=== PATIENT | female | born 1970 | race Caucasian/White ===

== ENCOUNTER 2017-09-28 13:03 | Inpatient (IN) | payer MEDICAID, OTHER ==
[~2017-09-28] VITALS: Ht 162.6 cm; Wt 47.2 kg
[2017-09-28] MEDS ORDERED: HALOPERIDOL LACTATE 5 MG/ML VIAL IM ONE (13:45)
[2017-09-28] MEDS ORDERED: LORazepam 2 MG/ML VIAL IM ONE (13:45)
[2017-09-28] MEDS ORDERED: DiphenhydrAMINE HCL 50 MG/ML VIAL IM ONE (13:45)
[2017-09-28 14:07] LABS: ANION GAP 9 mmol/L (8-16); CARBON DIOXIDE 26 mmol/L (22-29); CHLORIDE 108 mmol/L (98-107); CREATININE 0.88 mg/dL (0.60-1.30); GLOMERULAR FILTR. RATE CALC > 60 mL/min (>60); POTASSIUM 3.8 mmol/L (3.5-5.1); SODIUM SERUM 143 mmol/L (136-145); UREA NITROGEN, BLOOD 20 mg/dL (7-18)
[2017-09-28 14:08] LABS: BASOPHILS % (AUTO) 0.9 % (0.0-2.0); EOSINOPHILS % (AUTO) 3.2 % (1.0-6.0); HEMATOCRIT 37.1 % (36-46); HEMOGLOBIN 12.7 g/dL (12.0-16.0); LYMPHOCYTES # (AUTO) 1.9 K/uL (1.0-4.8); LYMPHOCYTES % (AUTO) 30.4 % (22.0-44.0); MEAN CORPUSCULAR HEMOGLOBIN 27.7 pg (26.0-34.0); MEAN CORPUSCULAR HGB CONC 34.2 G/dL (31.0-37.0); MEAN CORPUSCULAR VOLUME 81 fL (80-100); MONOCYTES # (AUTO) 0.5 K/uL (0.1-1.0); MONOCYTES % (AUTO) 8.1 % (2.0-9.0); NEUTROPHILS # (AUTO) 3.6 K/uL (1.8-7.7); NEUTROPHILS % (AUTO) 57.4 % (40.0-70.0); PLATELET COUNT (AUTO) 216 K/uL (150-450); RED BLOOD CELL COUNT(AUTO) 4.58 MIL/uL (4.00-5.20); RED CELL DISTRIBUTION WIDTH 16.8 % (11.5-14.5); WHITE BLOOD COUNT (AUTO) 6.3 K/uL (4.5-11.0)
[2017-09-28 14:13] LABS: ALANINE AMINOTRANSFERASE 26 U/L (12-78); ALBUMIN 3.5 g/dL (3.4-5.0); ASPARTATE AMINOTRANSFERASE 21 U/L (15-37); BILIRUBIN,TOTAL 0.2 mg/dL (0.1-1.0); TOTAL PROTEIN, SERUM 6.9 g/dL (6.4-8.2)
[2017-09-28] MEDS ORDERED: HALOPERIDOL 5 MG TABLET PO PRN (17:00)
[2017-09-28 17:47] LABS: CHOL/HDL RATIO 3.1 (3.9-5.7)
[2017-09-28 18:33] VITALS: BP 126/73
[2017-09-28] MEDS ORDERED: INFLUENZA VIRUS VACCINE QVS 2017-18 (3YR+)/PF 60 MCG/0.5 ML SYRINGE IM ONE (18:45)
[2017-09-29] MEDS: NICOTINE 14 MG/24 HOUR PATCH TD SCH (09:00)
[2017-09-29 09:26] VITALS: BP 105/70
[2017-09-29 16:02] VITALS: BP 112/75
[2017-09-29] MEDS: OLANZapine 5 MG TABLET PO SCH (20:39)
[2017-09-30 06:41] VITALS: BP 117/84
[2017-09-30 08:30] VITALS: BP 111/73
[2017-09-30] MEDS: NICOTINE 14 MG/24 HOUR PATCH TD SCH (09:00)
[2017-09-30 16:11] VITALS: BP 115/81
[2017-09-30] MEDS: OLANZapine 5 MG TABLET PO SCH (20:08)
[2017-09-30] MEDS ORDERED: ACETAMINOPHEN 325 MG TABLET PO PRN (22:30)
[2017-10-01 08:45] VITALS: BP 132/78
[2017-10-01] MEDS: NICOTINE 14 MG/24 HOUR PATCH TD SCH (08:46)
[2017-10-01] MEDS: IBUPROFEN 600 MG TABLET PO PRN (15:58)
[2017-10-01 16:04] VITALS: BP 131/99
[2017-10-01] MEDS: ZOLPIDEM TARTRATE 10 MG TABLET PO PRN (20:11)
[2017-10-01] MEDS: OLANZapine 5 MG TABLET PO SCH (20:11)
[2017-10-02 06:34] VITALS: BP 128/89
[2017-10-02] MEDS: IBUPROFEN 600 MG TABLET PO PRN ×2 (06:48→16:58)
[2017-10-02 08:56] VITALS: BP 100/61
[2017-10-02] MEDS: NICOTINE 14 MG/24 HOUR PATCH TD SCH (09:16)
[2017-10-02 16:03] VITALS: BP 111/68
[2017-10-02] MEDS: OLANZapine 5 MG TABLET PO SCH (20:18)
[2017-10-02] MEDS: ZOLPIDEM TARTRATE 10 MG TABLET PO PRN (21:02)
[2017-10-03 06:15] VITALS: BP 124/71
[2017-10-03] MEDS: IBUPROFEN 600 MG TABLET PO PRN (06:17)
[2017-10-03] MEDS: NICOTINE 14 MG/24 HOUR PATCH TD SCH (08:24)
[2017-10-03] MEDS: LORazepam 2 MG TABLET PO PRN (14:13)
[2017-10-03 16:02] VITALS: BP 106/60
[2017-10-03] MEDS: OLANZapine 5 MG TABLET PO SCH (20:20)
[2017-10-03] MEDS: ZOLPIDEM TARTRATE 10 MG TABLET PO PRN (21:01)
[2017-10-04 01:30] VITALS: BP 112/63
[2017-10-04] MEDS: LORazepam 2 MG TABLET PO PRN (08:57)
[2017-10-04] MEDS: IBUPROFEN 600 MG TABLET PO PRN (08:57)
[2017-10-04] MEDS: NICOTINE 14 MG/24 HOUR PATCH TD SCH (08:58)
[2017-10-04] MEDS ORDERED: OLAN5TAB27 PO (12:12)
[2017-10-04] MEDS ORDERED: OLAN7.5T9 PO (12:12)
== END 2017-10-04 13:43 | disposition home or self-care (01) | DRG 750 ==
LOC: EMS 13:05 → B3A 17:09
DX: F20.0 Paranoid schizophrenia (principal); Z78.1 Physical restraint status; F29 Unspecified psychosis not due to a substance or known physiological condition; F31.9 Bipolar disorder, unspecified; F17.200 Nicotine dependence, unspecified, uncomplicated; F12.90 Cannabis use, unspecified, uncomplicated; F19.959 Other psychoactive substance use, unspecified with psychoactive substance-induced psychotic disorder, unspecified; F15.90 Other stimulant use, unspecified, uncomplicated; Z82.49 Family history of ischemic heart disease and other diseases of the circulatory system; Z28.21 Immunization not carried out because of patient refusal; Z71.6 Tobacco abuse counseling; Z91.09 Other allergy status, other than to drugs and biological substances
CPT/HCPCS: 84439; 84443; 90471; 96365; 96372; 99291; G0480; J1200; J1630; J2060

== ENCOUNTER 2019-10-13 12:42 | Inpatient (IN) | payer MEDICAID ==
[~2019-10-13] VITALS: Ht 162.6 cm; Wt 45.5 kg
[~2019-10-13 12:42] MED LIST: OLAN5TAB27 PO
[2019-10-13] MEDS ORDERED: DiphenhydrAMINE HCL 50 MG/ML VIAL IM ONE (13:30)
[2019-10-13] MEDS ORDERED: HALOPERIDOL LACTATE 5 MG/ML VIAL IM ONE (13:30)
[2019-10-13] MEDS ORDERED: LORazepam 2 MG/ML VIAL IM ONE (13:30)
[2019-10-13] MEDS ORDERED: HALOPERIDOL 5 MG TABLET PO PRN (14:45)
[2019-10-13] MEDS ORDERED: ZOLPIDEM TARTRATE 10 MG TABLET PO PRN (14:45)
[2019-10-13] MEDS ORDERED: LORazepam 2 MG TABLET PO PRN (14:45)
[2019-10-13 16:18] LABS: BASOPHILS % (AUTO) 0.9 % (0.0-2.0); EOSINOPHILS % (AUTO) 1.4 % (1.0-6.0); HEMOGLOBIN 13.2 g/dL (12.0-16.0); LYMPHOCYTES # (AUTO) 1.5 K/uL (1.0-4.8); LYMPHOCYTES % (AUTO) 24.2 % (22.0-44.0); MEAN CORPUSCULAR HEMOGLOBIN 27.4 pg (26.0-34.0); MEAN CORPUSCULAR HGB CONC 32.9 G/dL (31.0-37.0); MEAN CORPUSCULAR VOLUME 83 fL (80-100); MONOCYTES # (AUTO) 0.5 K/uL (0.1-1.0); MONOCYTES % (AUTO) 8.8 % (2.0-9.0); NEUTROPHILS # (AUTO) 3.9 K/uL (1.8-7.7); NEUTROPHILS % (AUTO) 64.7 % (40.0-70.0); PLATELET COUNT (AUTO) 232 K/uL (150-450); RED BLOOD CELL COUNT(AUTO) 4.81 MIL/uL (4.00-5.20); RED CELL DISTRIBUTION WIDTH 16.5 % (11.5-14.5)
[2019-10-13 16:47] LABS: ANION GAP 8 mmol/L (8-16); CALCIUM, TOTAL 10.6 mg/dL (8.8-10.5); CARBON DIOXIDE 31 mmol/L (22-29); CHLORIDE 109 mmol/L (98-107); CREATININE 0.98 mg/dL (0.60-1.30); GLOMERULAR FILTR. RATE CALC > 60 mL/min (>60); GLUCOSE,RANDOM 80 mg/dL (70-110); POTASSIUM 4.3 mmol/L (3.5-5.1); SODIUM SERUM 148 mmol/L (136-145); UREA NITROGEN, BLOOD 22 mg/dL (7-18)
[2019-10-13 16:51] LABS: ALANINE AMINOTRANSFERASE 35 U/L (12-78); ALBUMIN 3.7 g/dL (3.4-5.0); ALKALINE PHOSPHATASE 93 U/L (46-116); ASPARTATE AMINOTRANSFERASE 44 U/L (15-37); BILIRUBIN,TOTAL 0.3 mg/dL (0.1-1.0); TOTAL PROTEIN, SERUM 7.6 g/dL (6.4-8.2)
[2019-10-13 19:01] VITALS: BP 136/65
[2019-10-13] MEDS: NEOMYCIN/BACITRACIN/POLYMYXIN B 30 GM OINTMENT TP SCH (21:42)
[2019-10-13] MEDS ORDERED: INFLUENZA VIRUS VACCINE QVS 2019-20 (3YR+)/PF 60 MCG/0.5 ML SYRINGE IM ONE (22:15)
[2019-10-14 05:07] VITALS: BP 105/67
[2019-10-14 08:06] VITALS: BP 108/67
[2019-10-14 08:12] LABS: CHOL/HDL RATIO 2.8 (3.9-5.7); CHOLESTEROL 185 mg/dL (131-200); HCG,QUANTITATIVE 4 mIU/mL (0-6); HDL CHOLESTEROL 65 mg/dL (40-60); LDL CHOL (CALC.) 109 mg/dL (0-130); TRIGLYCERIDES 57 mg/dL (15-150)
[2019-10-14] MEDS ORDERED: GuaiFENesin/D-METHORPHAN [SUGAR-FREE] 200-20MG/10 ML SYRUP UDCUP PO PRN (08:15)
[2019-10-14] MEDS ORDERED: ONDANSETRON HCL 4 MG TABLET PO PRN (08:15)
[2019-10-14] MEDS ORDERED: ALBUTEROL SULFATE HFA 90 MCG/PUFF 8 GM INHALER IH PRN (08:15)
[2019-10-14] MEDS ORDERED: NICOTINE 14 MG/24 HOUR PATCH TD PRN (08:15)
[2019-10-14] MEDS ORDERED: ACETAMINOPHEN 325 MG TABLET PO PRN (08:15)
[2019-10-14] MEDS ORDERED: CloNIDine HCL 0.1 MG TABLET PO PRN (08:15)
[2019-10-14] MEDS ORDERED: DOCUSATE SODIUM 100 MG CAPSULE PO PRN (08:15)
[2019-10-14] MEDS ORDERED: LOPERAMIDE HCL 2 MG CAPSULE PO PRN (08:15)
[2019-10-14] MEDS ORDERED: PETROLATUM,WHITE 28 GM JELLY TP PRN (08:15)
[2019-10-14] MEDS ORDERED: IBUPROFEN 400 MG TABLET PO PRN (08:15)
[2019-10-14] MEDS ORDERED: MAG HYDROX/AL HYDROX/SIMETH ES 30 ML SUSPENSION UDCUP PO PRN (08:15)
[2019-10-14] MEDS ORDERED: MAGNESIUM HYDROXIDE SUSPENSION 30 ML UDCUP PO PRN (08:15)
[2019-10-14] MEDS: NEOMYCIN/BACITRACIN/POLYMYXIN B 30 GM OINTMENT TP SCH ×2 (08:17→16:13)
[2019-10-14 16:00] VITALS: BP 101/70
[2019-10-14] MEDS: OLANZapine 5 MG TABLET PO SCH (19:27)
[2019-10-15 00:32] VITALS: BP 100/59
[2019-10-15 07:58] LABS: MAGNESIUM 1.9 mg/dL (1.80-2.40); PHOSPHORUS 2.9 mg/dL (2.5-4.9); THYROID STIMULATING HORMONE 0.86 uIU/mL (0.36-3.74)
[2019-10-15 08:10] VITALS: BP 108/65
[2019-10-15] MEDS: NEOMYCIN/BACITRACIN/POLYMYXIN B 30 GM OINTMENT TP SCH ×2 (09:00→17:45)
[2019-10-15 19:02] VITALS: BP 101/62
[2019-10-15] MEDS: OLANZapine 5 MG TABLET PO SCH (20:05)
[2019-10-16 05:04] VITALS: BP 107/68
[2019-10-16 08:21] VITALS: BP 101/61
[2019-10-16] MEDS: NEOMYCIN/BACITRACIN/POLYMYXIN B 30 GM OINTMENT TP SCH (09:00)
[2019-10-16] MEDS ORDERED: OLAN5TAB27 PO (10:13)
== END 2019-10-16 13:30 | disposition home or self-care (01) | DRG 750 ==
LOC: EMS 12:42 → B3A 15:35
PROC: 3E0234Z Introduction of Serum, Toxoid and Vaccine into Muscle, Percutaneous Approach (ICD-10-PCS; principal; 2019-10-13)
DX: F20.0 Paranoid schizophrenia (principal); E87.0 Hyperosmolality and hypernatremia; Z23 Encounter for immunization; Z88.8 Allergy status to other drugs, medicaments and biological substances; F10.10 Alcohol abuse, uncomplicated; Y90.9 Presence of alcohol in blood, level not specified; F15.90 Other stimulant use, unspecified, uncomplicated; F17.200 Nicotine dependence, unspecified, uncomplicated; F31.9 Bipolar disorder, unspecified; Z59.0 Homelessness; Z81.8 Family history of other mental and behavioral disorders; Z91.19 Patient's noncompliance with other medical treatment and regimen; Z91.5 Personal history of self-harm
CPT/HCPCS: 83735; 84100; 84443; G0480; J1200; J1630; J2060

== ENCOUNTER 2021-11-07 19:07 | Emergency (ER) | payer MEDICAID ==
[~2021-11-07] VITALS: Ht 162.6 cm; Wt 52.3 kg
[~2021-11-07 19:07] MED LIST changes: -OLAN5TAB27 PO; +OLAN5TAB77 PO
[2021-11-07 19:42] VITALS: BP 163/75
[2021-11-07] MEDS ORDERED: IBUPROFEN 600 MG TABLET PO ONE (21:45)
[2021-11-07] MEDS ORDERED: ACETAMINOPHEN 500 MG TABLET PO ONE (21:45)
[2021-11-07 22:19] LABS: BASOPHILS % (AUTO) 0.5 % (0.0-2.0); EOSINOPHILS % (AUTO) 0.6 % (1.0-6.0); HEMATOCRIT 37.3 % (36-46); HEMOGLOBIN 12.6 g/dL (12.0-16.0); LYMPHOCYTES # (AUTO) 0.3 K/uL (1.0-4.8); LYMPHOCYTES % (AUTO) 9.2 % (22.0-44.0); MEAN CORPUSCULAR HEMOGLOBIN 28.3 pg (26.0-34.0); MEAN CORPUSCULAR HGB CONC 33.7 G/dL (31.0-37.0); MEAN CORPUSCULAR VOLUME 84 fL (80-100); MONOCYTES # (AUTO) 0.4 K/uL (0.1-1.0); MONOCYTES % (AUTO) 12.1 % (2.0-9.0); NEUTROPHILS # (AUTO) 2.7 K/uL (1.8-7.7); NEUTROPHILS % (AUTO) 77.6 % (40.0-70.0); PLATELET COUNT (AUTO) 140 K/uL (150-450); RED BLOOD CELL COUNT(AUTO) 4.45 MIL/uL (4.00-5.20); RED CELL DISTRIBUTION WIDTH 14.9 % (11.5-14.5)
[2021-11-07 22:47] LABS: ANION GAP 7 mmol/L (8-16); CALCIUM, TOTAL 9.2 mg/dL (8.8-10.5); CARBON DIOXIDE 28 mmol/L (22-29); CHLORIDE 103 mmol/L (98-107); CREATININE 0.79 mg/dL (0.60-1.30); GLOMERULAR FILTR. RATE CALC > 60 mL/min (>60); GLUCOSE,RANDOM 95 mg/dL (70-110); POTASSIUM 3.9 mmol/L (3.5-5.1); SODIUM SERUM 138 mmol/L (136-145); UREA NITROGEN, BLOOD 16 mg/dL (7-18)
[2021-11-07 22:52] LABS: ALANINE AMINOTRANSFERASE 26 U/L (12-78); ALBUMIN 3.6 g/dL (3.4-5.0); ALKALINE PHOSPHATASE 94 U/L (46-116); ASPARTATE AMINOTRANSFERASE 26 U/L (15-37); BILIRUBIN,TOTAL 0.3 mg/dL (0.1-1.0); TOTAL PROTEIN, SERUM 7.1 g/dL (6.4-8.2)
[2021-11-07 23:24] LABS: COVID AG,FIA SOURCE NASOPHARYNGEAL
== END 2021-11-08 01:39 | disposition home or self-care (01) ==
LOC: EMS 19:09
DX: U07.1 COVID-19 (principal); F20.0 Paranoid schizophrenia; F31.9 Bipolar disorder, unspecified; F20.9 Schizophrenia, unspecified; F12.90 Cannabis use, unspecified, uncomplicated; F17.210 Nicotine dependence, cigarettes, uncomplicated; Z59.00 Homelessness unspecified
CPT/HCPCS: 36415; 80053; 84703; 85025; 87426; 99283; U0003

== ENCOUNTER 2025-09-14 13:58 | Emergency (ER) | payer MEDICAID ==
[~2025-09-14] VITALS: Ht 162.6 cm; Wt 56.8 kg
[2025-09-14 14:01] VITALS: BP 107/66; PULSE 89; RESP 18; TEMP 97.9; O2SAT 99
== END 2025-09-14 16:51 | disposition left against medical advice (07) ==
LOC: EMS 14:02
DX: F20.0 Paranoid schizophrenia (principal); L98.499 Non-pressure chronic ulcer of skin of other sites with unspecified severity; F31.9 Bipolar disorder, unspecified; F17.210 Nicotine dependence, cigarettes, uncomplicated; F12.90 Cannabis use, unspecified, uncomplicated; Z91.048 Other nonmedicinal substance allergy status; Z59.00 Homelessness unspecified; Z85.9 Personal history of malignant neoplasm, unspecified
CPT/HCPCS: 99284; Z7502